=== PATIENT | male | born 1960 | race Caucasian/White ===

== ENCOUNTER 2023-12-18 14:18 | Emergency (ER) | payer OTHER, SELFPAY ==
[2023-12-18 14:23] VITALS: BP 143/86; BMI 24.8
[2023-12-18 17:00] VITALS: BP 164/89
--- NOTE | 2023-12-18 17:03 | ED.GENMED ---
History of Present Illness
<Mackenzie Cordoba PA-C - Last Filed: 12/19/23 00:02>
General
Chief Complaint: Chest Pain
Source: patient
Exam Limitations: none
Time Seen by Provider: 12/18/23 16:25
Nursing documentation reviewed up to this point in time: agreed with
Travel History
Have you had any contact with someone who has COVID-19?: No
Do you have any symptoms of coronavirus? Fever > 100 degrees, chills, cough, shortness of breath, sore throat, loss of taste or smell, muscle aches, or headache?: No
History of Present Illness
History of Present Illness:
Patient is a 63 year old male with history celiac disease presenting for evaluation of chest pain. Patient states that he has noticed intermittent chest pain since June. About a day and a half ago he noticed an increase in intensity. He
describes the pain as a pressure type pain in his left chest with some radiation up into his neck. He states the pain is not exertional in nature and nonpleuritic. He denies any associated shortness of breath, nausea, vomiting, fever, chills. At
this moment�he states that the chest pain has returned to baseline level since June.
Patient follows with a banking analyst in [place]. He has had EKGs, blood work, echocardiograms, chest x-rays and exercise stress tests over the past few months which have all been normal. Patient has a follow-up with his banking analyst scheduled
for tomorrow
Of note�patient has been dealing with left paravertebral back pain for many months now and has had multiple MRIs and other imaging studies. 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 In
addition�patient was recently diagnosed with celiac disease. He has had multiple endoscopies and biopsies. Patient is wondering if all of the symptoms are related.
Phy Exam
<Mackenzie Cordoba PA-C - Last Filed: 12/19/23 00:02>
Physical Exam
Physical Exam:
General: In no apparent distress, non-toxic appearing
Vitals: Vital signs stable, afebrile
HEENT: Atraumatic, normocephalic; protecting airway
Neck: appears supple, no meningeal signs
CV: RRR, heart sounds normal, no evidence of cyanosis; anterior chest wall nontender to palpation
Resp: No evidence of respiratory distress, lungs clear bilaterally without any wheezing, rales, rhonchi
Abd: Soft, nontender, non-distended
Extremities: No deformities, no evidence of cyanosis or edema; DP pulses palpable and equal bilaterally
Neuro: alert and oriented x 3; grossly intact
Psych: Mildly anxious
Skin: Intact, no rashes
Scores
<Mackenzie Cordoba PA-C - Last Filed: 12/19/23 00:02>
Heart Score for Chest Pain Patients
Heart Score for Chest Pain Patients: 2
Heart Score Risk: 2.5% MACE over next 6 weeks
<Mayur Madera MD - Last Filed: 12/18/23 21:54>
Heart Score for Chest Pain Patients
STEMI patient?: No
History: Slightly or Non-Suspicious
ECG: Normal
Age: >45 - <65 years
Risk Factors: 1 or 2 Risk Factors
Troponin: </= Normal Limit
Heart Score for Chest Pain Patients: 2
Heart Score Risk: 2.5% MACE over next 6 weeks
Course
<Mackenzie Cordoba PA-C - Last Filed: 12/19/23 00:02>
Orders/Labs/Results
Orders:
Orders
12/18/23 14:22
EKG [Electrocardiogram (*1)] Urgent
Reason for Study: Chest Pain
EKG- Treatment ONCE
12/18/23 17:07
Complete Blood Count/With Diff Urgent
Comprehensive Metabolic Panel Urgent
Troponin I Urgent
Abnormal Lab Results
12/18/23
17:07
RBC 4.66 L 10^6/uL
(4.70-6.10)
MCH 32.2 H pg
(27.0-31.0)
MPV 10.7 H fL
(7.4-10.4)
Carbon Dioxide 31 H mmol/L
(22-30)
BUN 21 H mg/dl
(9-20)
12/18/23 17:07
12/18/23 17:07
Vital Signs
Initial and Last Documented VS:
Initial Vital Signs
Temp Pulse Resp BP Pulse Ox
99.1 F 75 16 143/86 100
12/18/23 14:23 12/18/23 14:23 12/18/23 14:23 12/18/23 14:23 12/18/23 14:23
Last Documented Vital Signs
Temp Pulse Resp BP Pulse Ox
99.1 F 71 19 159/86 99
12/18/23 14:23 12/18/23 18:30 12/18/23 18:30 12/18/23 18:00 12/18/23 18:30
<Mayur Madera MD - Last Filed: 12/18/23 21:54>
Orders/Labs/Results
Orders:
Orders
12/18/23 14:22
EKG [Electrocardiogram (*1)] Urgent
Reason for Study: Chest Pain
EKG- Treatment ONCE
12/18/23 17:07
Complete Blood Count/With Diff Urgent
Comprehensive Metabolic Panel Urgent
Troponin I Urgent
Abnormal Lab Results
12/18/23
17:07
RBC 4.66 L 10^6/uL
(4.70-6.10)
MCH 32.2 H pg
(27.0-31.0)
MPV 10.7 H fL
(7.4-10.4)
Carbon Dioxide 31 H mmol/L
(22-30)
BUN 21 H mg/dl
(9-20)
12/18/23 17:07
12/18/23 17:07
Vital Signs
Initial and Last Documented VS:
Initial Vital Signs
Temp Pulse Resp BP Pulse Ox
99.1 F 75 16 143/86 100
12/18/23 14:23 12/18/23 14:23 12/18/23 14:23 12/18/23 14:23 12/18/23 14:23
Last Documented Vital Signs
Temp Pulse Resp BP Pulse Ox
99.1 F 71 19 159/86 99
12/18/23 14:23 12/18/23 18:30 12/18/23 18:30 12/18/23 18:00 12/18/23 18:30
<Mackenzie Cordoba PA-C - Last Filed: 12/19/23 00:02>
MDM/Problems Addressed
Differential Diagnosis Includes:
Muscular strain, costochondritis, pericarditis, myocarditis, pneumonia, pericardial effusion doubt ACS or PE
MDM/Problems Addressed:
Patient is a 63-year-old male with recent diagnosis of celiac disease presenting for evaluation of chest pain. Symptoms have been present since June but noticed some worsening 2 days ago. He denies any associated dizziness, lightheadedness,
shortness of breath. He has undergone multiple EKGs, stress test, echocardiograms, chest x-rays over the past few months without any abnormal findings. He has follow-up scheduled with banking analyst in the morning. Vitals are stable. Physical exam
as document above. History and story not consistent with ACS.
CBC and CMP without any clinically significant abnormalities. Troponin negative. Given symptoms have been ongoing for the past 2 days�this is sufficient to rule out acute MA. EKG shows normal sinus rhythm without any signs of ischemia.
Workup here entirely negative. Patient has remained stable throughout duration in emergency department. He will follow-up with banking analyst in the morning if symptoms persist. Stable for discharge with return precautions, cardiology follow-up.
Patient comfortable with plan.
Chronic conditions affecting care:
N/A
Acute Exacerbation and/or Progression of Chronic Illness:
N/A
<Mackenzie Cordoba PA-C - Last Filed: 12/19/23 00:02>
*Pulse Oximetry
Patient hypoxic: no
*EKG
Interpreted by ED Provider?: Yes
EKG Intrepretation Date: 12/19/23
Interpretation: normal
Heart Rate: 80
Rate: normal
Rhythm: sinus
Ischemia: no ischemia
*Rn Quality Interpretation
Rate: normal
Interpretation: normal
Heart Rate: 74
Rhythm: sinus
*Critical Care Note
Total Time (30-74mins, 75-104mins- exclusive of procedures): Not Applicable
ED Attending Note
<Mackenzie Cordoba PA-C - Last Filed: 12/19/23 00:02>
-
Portions of this chart may have been created with voice recognition software.� Occasional wrong word or��sound alike� substitutions may have occurred due to the inherent limitations of voice recognition software.
<Mayur Madera MD - Last Filed: 12/18/23 21:54>
ED Attending Note
Patient seen and examined by attending physician: Yes
ED Attending Note:
Patient presents to ED secondary to worsening back pain radiating to his chest over the past 2 days. Denies fever or chills. Denies shortness of breath. Denies dizziness. Denies nausea or vomiting. Denies shortness of breath. Denies chest
palpitations. Denies recent travel or surgery. Patient unfortunately has had similar symptoms over the past couple years. Patient has been evaluated multiple times by his primary care physician as well as banking analyst and GI physician, including
CT chest, MRI of back, stress echocardiogram, as well as endoscopy. In fact, patient states that he has an appointment with his banking analyst tomorrow morning.
Physical Exam
General: no apparent distress, not acutely ill. afebrile
Head: nc/at. eomi
Neck: supple. normal range of motion.
Heart: s1/s2 regular rate and rhythm, no murmur. equal radial pulses.
Lungs: no acute respiratory distress. clear bilaterally
Abdomen: normal bowel sounds. not tender.
Neuro: alert and oriented. no focal neurological deficits
Skin: no rash
Psychiatric: well kept. interactive and cooperative
Extremities: no edema. no calf tenderness.
Patient with an unremarkable workup in ED, including blood work and EKG. History and exam inconsistent with acute coronary syndrome. However, patient does have risk factors for heart disease. As such, it is reasonable to discharge patient home
now, but with follow-up with his banking analyst tomorrow morning for further workup. Patient otherwise is hemodynamically stable and nontoxic-appearing, at time of discharge to the care of his family.
Discharge Plan
Departure
Patient Disposition: Home (Routine Discharge)
Date of Disposition: 12/18/23
Time of Disposition: 18:42
Patient with high blood pressure during this ER visit?: Yes
Condition: Good
Covid-19: Not Applicable
Discharge Problem:
Chest pain
Instructions: Chest Pain (DC)
Referrals:
Christopher Hanks DO [Family Provider] -
Activity Restrictions/Additional Instructions:
-Return to the emergency department with any chest pain that is worse with exertion or associated with shortness of breath, nausea, diaphoresis, lightheadedness/dizziness; any high fevers, numbness/tingling in lower extremities, bowel/bladder
incontinence, visual disturbances, worsening in current symptoms, or any other concerns
-As long as you continue to have ongoing discomfort, you will need to see your banking analyst tomorrow morning as scheduled for further evaluation. You may need further testing
Interventions
Interventions:
*Risk Screen - Suicide Last Done: 12/18/23 14:23
*General Assessment Last Done: 12/18/23 18:48
*Neglect/Abuse Screening Last Done: 12/18/23 14:23
ED- Fall Risk Assessment Last Done: 12/18/23 18:48
*ED COVID-19 Vaccine History Last Done: 12/18/23 14:23
*Nursing Disposition Last Done: 12/18/23 18:48
ED- Cardiac Assessment Last Done: 12/18/23 16:40
Discharge Date and Time
Discharge Date/Time: 12/18/23 18:54
Print Language: LITHUANIAN
[2023-12-18 17:26] LABS: % Basophils 0.7 % (0-2); % Eosinophils 1.3 % (0-6); % Immature Granulocytes 0.1 % (0-0.5); % Lymphocytes 22.3 % (20.5-51.1); % Monocytes 9.1 % (1.7-9.3); % Neutrophils 66.5 % (42.2-75.2); Absolute Basophils 0.1 10^3/uL (0-0.2); Absolute Eosinophils 0.1 10^3/uL (0-0.7); Absolute Lymphocytes 1.5 10^3/uL (1.2-3.4); Absolute Monocytes 0.6 10^3/uL (0.1-0.6); Absolute Neutrophils 4.5 10^3/uL (1.4-6.5); Hematocrit 41.4 % (39.0-52.0); Mean Corp Hgb Conc. 36.2 g/dL (33.0-37.0); Mean Corpuscular Hgb 32.2 pg (27.0-31.0); Mean Corpuscular Volume 88.8 fL (80.0-94.0); Mean Platelet Volume 10.7 fL (7.4-10.4); Nucleated Red Blood Cells % 0 % (-); Platelet Count 240 10^3/uL (130-400); Red Blood Cell Count 4.66 10^6/uL (4.70-6.10); White Blood Cell Count 6.7 10^3/uL (4.8-10.8)
[2023-12-18 17:37] LABS: ALT (SGPT) 46 U/L (0-50); AST (SGOT) 44 U/L (17-59); Albumin 4.4 g/dl (3.5-5.0); Alkaline Phosphatase 77 U/L (38-126); Blood Urea Nitrogen 21 mg/dl (9-20); Calcium 10.1 mg/dl (8.4-10.2); Carbon Dioxide 31 mmol/L (22-30); Chloride 98 mmol/L (98-107); Estimated Creatinine Clearance 88 ml/min; Glucose 94 mg/dl (70-99); Potassium 3.8 mmol/L (3.5-5.1); Sodium 137 mmol/L (135-145); Total Bilirubin 0.9 mg/dl (0.2-1.3); eGFR > 60.00
[2023-12-18 17:47] LABS: Troponin I < 0.012 ng/ml
[2023-12-18 18:00] VITALS: BP 159/86
== END 2023-12-18 18:54 | disposition home or self-care (01) ==
LOC: EMR 14:18
PROVIDERS: Physician Assistant; EMERGENCY PHYSICIAN Emergency Medicine; FAMILY PHYSICIAN Family Medicine
DX: R07.89 Other chest pain (principal); K90.0 Celiac disease
CPT/HCPCS: 99283; 80053; 84484; 85025; 93005